=== PATIENT | female | born 1990 | race Caucasian/White ===

== ENCOUNTER 2023-12-30 15:37 | Emergency (ER) | payer BC, OTHER ==
[~2023-12-30] VITALS: Ht 175.3 cm; Wt 64.0 kg
[2023-12-30 16:15] VITALS: BP 145/90; TEMP 99.1; O2SAT 99
[2023-12-30 17:28] LABS: BASOPHILS # (AUTO) 0.1 K/uL (0.0-0.2); BASOPHILS % (AUTO) 1.5 % (0.0-2.0); EOSINOPHILS # (AUTO) 0.2 K/uL (0.0-0.7); EOSINOPHILS % (AUTO) 2.9 % (0.0-6.0); HEMATOCRIT 43 % (33-45); HEMOGLOBIN 14.4 g/dL (11.5-14.8); LYMPHOCYTES % (AUTO) 11.5 % (20.0-44.0); MEAN CORPUSCULAR HEMOGLOBIN 31 PG (26.0-33.0); MEAN CORPUSCULAR HGB CONC 34 g/dl (31.0-36.0); MEAN CORPUSCULAR VOLUME 93 fL (82-100); MONOCYTES # (AUTO) 0.4 K/uL (0.1-1.30); MONOCYTES % (AUTO) 4.9 % (2.0-12.0); NEUTROPHILS # (AUTO) 6.8 K/uL (1.8-8.9); NEUTROPHILS % (AUTO) 79.2 % (43.0-81.0); RED BLOOD CELL COUNT(AUTO) 4.61 MIL/uL (4.0-5.2); RED CELL DISTRIBUTION WIDTH 12.6 % (11.5-15.0); WHITE BLOOD COUNT (AUTO) 8.5 K/uL (4.3-11.0)
[2023-12-30 17:32] LABS: CALCIUM, SERUM 9.6 mg/dL (8.5-10.1); CREATININE 0.6 mg/dL (0.6-1.3); POTASSIUM 3.4 mmol/L (3.5-5.1)
[2023-12-30 17:39] LABS: ALBUMIN 4.2 g/dL (3.4-5.0); BILIRUBIN,TOTAL 0.3 mg/dL (0.2-1.0); TOTAL PROTEIN, SERUM 8.1 g/dL (6.4-8.2)
[2023-12-30 17:41] LABS: PLATELET COUNT (AUTO) 23 K/uL (150-450)
[2023-12-30 17:50] LABS: ANISOCYTOSIS 1+; EOSINOPHILS % (MANUAL) 3 % (0-4); LYMPHOCYTES % (MANUAL) 22 % (16-48); MONOCYTES % (MANUAL) 7 % (0-11.0); NEUTROPHILS % (MANUAL) 68 (42-76)
[2023-12-30 17:51] LABS: PLATELET ESTIMATE DECRE
[2023-12-30] MEDS: IV NS 0.9% 1,000 ML IV ONE (19:24)
[2023-12-30] MEDS ORDERED: MECLIZINE HCL 25 MG TABLET ONE (19:33)
[2023-12-30] MEDS: MECLIZINE HCL 12.5 MG TABLET PO ONE (19:38)
[2023-12-30] MEDS: AZITHROMYCIN 500 MG in IV D5W 250 ML IV ONE (19:53)
[2023-12-30] MEDS ORDERED: PROM118S5 PO (20:00)
[2023-12-30] MEDS ORDERED: ONDANSETRON HCL/PF 4 MG/2 ML VIAL ONE (20:35)
[2023-12-30] MEDS: ONDANSETRON HCL/PF - ER 4 MG/2 ML VIAL IV ONE (20:40)
== END 2023-12-30 21:05 | disposition home or self-care (01) ==
LOC: ER 15:37
DX: J06.9 Acute upper respiratory infection, unspecified (principal); Z20.822 Contact with and (suspected) exposure to COVID-19
CPT/HCPCS: 99284; 96365; 71045; 96375; 87635; 87426; 85025; 87804; 87880; 80053; 85007; J8597; J2405; J0456; 86403-TC; J7060

== ENCOUNTER 2025-02-02 13:03 | Emergency (ER) | payer BC ==
[~2025-02-02] VITALS: Ht 175.3 cm; Wt 63.5 kg
[~2025-02-02 13:03] MED LIST: PROM118S5 PO
[2025-02-02 13:50] LABS: BASOPHILS % (AUTO) 0.1 % (0.0-2.0); EOSINOPHILS % (AUTO) 0.2 % (0.0-6.0); HEMATOCRIT 45 % (33-45); HEMOGLOBIN 14.9 g/dL (11.5-14.8); LYMPHOCYTES # (AUTO) 0.7 K/uL (0.8-4.8); LYMPHOCYTES % (AUTO) 6.3 % (20.0-44.0); MEAN CORPUSCULAR HEMOGLOBIN 30 PG (26.0-33.0); MEAN CORPUSCULAR HGB CONC 33 g/dl (31.0-36.0); MEAN CORPUSCULAR VOLUME 91 fL (82-100); MONOCYTES # (AUTO) 0.3 K/uL (0.1-1.30); MONOCYTES % (AUTO) 3.2 % (2.0-12.0); NEUTROPHILS # (AUTO) 9.5 K/uL (1.8-8.9); NEUTROPHILS % (AUTO) 90.2 % (43.0-81.0); RED BLOOD CELL COUNT(AUTO) 4.89 MIL/uL (4.0-5.2); RED CELL DISTRIBUTION WIDTH 12.8 % (11.5-15.0); WHITE BLOOD COUNT (AUTO) 10.6 K/uL (4.3-11.0)
[2025-02-02 14:00] LABS: CALCIUM, SERUM 9.3 mg/dL (8.5-10.1); CREATININE 0.7 mg/dL (0.6-1.3); POTASSIUM 4.3 mmol/L (3.5-5.1)
[2025-02-02 14:05] LABS: PLATELET COUNT (AUTO) 46 K/uL (150-450)
[2025-02-02 14:06] LABS: BILIRUBIN,DIRECT 0.2 mg/dL (0.0-0.2); BILIRUBIN,TOTAL 0.8 mg/dL (0.2-1.0); TOTAL PROTEIN, SERUM 7.5 g/dL (6.4-8.2)
[2025-02-02 14:14] LABS: ALBUMIN 4.4 g/dL (3.4-5.0)
[2025-02-02] MEDS: ALPRAZOLAM 0.25 MG TABLET PO ONE (14:30)
[2025-02-02] MEDS ORDERED: ALPRAZOLAM 0.25 MG TABLET ONE (14:32)
[2025-02-02 14:37] LABS: LYMPHOCYTES % (MANUAL) 6 % (16-48); MONOCYTES % (MANUAL) 2 % (0-11.0); NEUTROPHILS % (MANUAL) 92 (42-76); PLATELET ESTIMATE DECREASED
[2025-02-02 15:09] LABS: INR 1.04 (0.91-1.10); PARTIAL THROMBOPLASTIN TIME 30.8 SEC (24.3-34.3)
[2025-02-02] MEDS ORDERED: DICY10CA37 PO (16:58)
[2025-02-02] MEDS ORDERED: ONDA4TAB5 PO (17:12)
[2025-02-02 17:15] VITALS: BP 123/86; TEMP 98.8; O2SAT 99
== END 2025-02-02 17:16 | disposition home or self-care (01) ==
LOC: ER 13:18
DX: I88.0 Nonspecific mesenteric lymphadenitis (principal); D69.3 Immune thrombocytopenic purpura; F41.9 Anxiety disorder, unspecified; R00.0 Tachycardia, unspecified; R10.31 Right lower quadrant pain; R10.2 Pelvic and perineal pain
CPT/HCPCS: 36415; 80048-TC; 80076-TC; 83690-TC; 84702-TC; 85025-TC; 85385-TC; 85610-TC; 85730-TC